=== PATIENT | female | born 1970 | race Caucasian/White ===

== ENCOUNTER 2024-02-09 11:28 | Day surgery (SDC) | payer MEDICAID ==
[~2024-02-09] VITALS: Ht 170.2 cm; Wt 144.0 kg
[~2024-02-09 11:28] MED LIST: OMEP-271 PO; TRAM50TA2 PO
[2024-02-09 12:00] VITALS: BP 155/100; PULSE 86; RESP 16
[2024-02-09] MEDS ORDERED: BUDE10.2 INH (12:14)
[2024-02-09] MEDS ORDERED: METH-797 PO (12:15)
[2024-02-09] MEDS ORDERED: RABE20TA31 PO (12:16)
[2024-02-09] MEDS ORDERED: fentaNYL/PF 50MCG/1 ML 2ML syringe ONE (12:37)
[2024-02-09] MEDS ORDERED: diphenhydrAMINE 50 mg/ml inj ONE (12:37)
[2024-02-09] MEDS ORDERED: MIDAZolam 1 MG/ML 5ML VIAL ONE (12:37)
[2024-02-09] MEDS ORDERED: LIDOcaine 2% Viscous 15ml cup ONE (12:38)
[2024-02-09 13:34] VITALS: BP 131/76; PULSE 63; RESP 19; O2SAT 100
[2024-02-09 13:40] VITALS: BP 121/81; PULSE 68; RESP 13; O2SAT 99
[2024-02-09 13:50] VITALS: BP 103/69; PULSE 62; RESP 13; O2SAT 99
[2024-02-09 14:00] VITALS: BP 117/70; PULSE 19; RESP 19; O2SAT 96
[2024-02-09 14:05] VITALS: BP 117/71; PULSE 60; RESP 15; O2SAT 99
== END 2024-02-09 14:15 | disposition home or self-care (01) ==
LOC: GI LAB 11:28
PROVIDERS: ATTEND Internal Medicine Gastroenterology
DX: Z12.11 Encounter for screening for malignant neoplasm of colon (principal); R13.10 Dysphagia, unspecified; K57.30 Diverticulosis of large intestine without perforation or abscess without bleeding; K29.70 Gastritis, unspecified, without bleeding
CPT/HCPCS: 43239; 45378; 99152; J1200; J2250; J3010; J7030; Z7512; 99153; A4620

== ENCOUNTER 2025-03-29 23:21 | Emergency (ER) | payer MEDICAID ==
[~2025-03-29] VITALS: Ht 170.2 cm; Wt 143.6 kg
[~2025-03-29 23:21] MED LIST changes: +BUDE10.2 INH; +METH-797 PO; -OMEP-271 PO; +RABE20TA32 PO; -TRAM50TA2 PO
[2025-03-30 00:41] LABS: LEUKOCYTE ESTERASE ,URINE NEGATIVE (Neg); NITRITES, URINE NEGATIVE (Neg); OCCULT BLOOD,URINE NEGATIVE (Neg)
[2025-03-30 00:42] LABS: URINE HCG NEGATIVE (NEG)
[2025-03-30 00:50] LABS: UA COLLECTION TYPE CLN CATCH MIDSTREAM
--- NOTE | 2025-03-30 01:36 | RADIOLOGY REPORT ---
Exam: CT CT ABDOMEN PELVIS History: ABD PAIN Comparison Study: None Technique: Multidetector spiral CT of the abdomen was performed from lung bases to pubic symphysis. I maging was performed without IV contrast. Axial, coronal and sagittal multiplanar reformats were obta ined from the axial data set by the technologist. Radiation Dose : 1. Abdomen/Pelvis: CTDIvol 36.88 mGy, DLP 1944.62 mGy*cm. Findings: Evaluation of solid organs is limited due to lack of intravenous contrast use. Lung Bases: No acute or significant lung base finding. Normal heart size. No pleural or pericardial effusion. Liver: The liver is normal in size. No focal lesions. Gallbladder and Biliary Tree: Unremarkable Spleen: Unremarkable Pancreas: The pancreas is grossly normal in appearance. Adrenal Glands: Unremarkable Kidneys: Kidneys are grossly normal without calculi or hydronephrosis. Bladder: Grossly unremarkable for degree of distention. Bowel: The stomach is grossly normal in appearance. Small bowel and colon are normal in caliber and d istribution. The appendix is not visualized; however, no secondary findings of acute appendicitis barb ntified. Ascites: Absent Lymphadenopathy: No mesenteric, retroperitoneal or periportal lymphadenopathy. Abdominal Wall and Mesentery: Unremarkable. Vasculature: The visualized abdominal aorta is normal in size and caliber. Atherosclerotic vascular c alcifications. Evaluation of abdominal and pelvic vessels is limited due to lack of intravenous cont rast. Pelvic Organs: Unremarkable, status post hysterectomy. Musculoskeletal: No aggressive focal bony lesions, acute fractures or dislocation. IMPRESSION: 1. No acute abdominal or pelvic findings. Radiation optimization: All CT scans at this facility use at least one of these dose optimization jolene hniques: automated exposure control mA and/or kV adjustment per patient size (includes targeted exam s where dose is matched to clinical indication) or iterative reconstruction.
--- NOTE | 2025-03-30 02:21 | Physician Documentation ---
History of Present Illness Chief Complaint: Flank Pain Stated Complaint: KIDNEY PAIN Time Seen by MD: 02:18 OK to notify your PCP?: Yes Primary Medical Doctor: SYLVIA THAKKAR Source: patient, RN/MD, RN notes reviewed, old records Mode of Arrival: POV, Ambulatory Exam Limitations: no limitations HPI 54 year old female seen in bed 11 presents to the emergency department for complaints of left sided flank pain that has been present for one week. She states that five days ago she had seen her primary physician and was prescribed an antibiotic as well as an ultrasound but presented today because her pain is so severe. She states that it is non radiating and it worsens with movement. She states that she is currently taking gabapentin and meloxicam. Medication Reconciliation Allergies: Coded Allergies: Latex, Natural Rubber (Verified Allergy, Unknown, 03/29/25) clindamycin (Verified Allergy, Unknown, 03/29/25) codeine (Verified Allergy, Unknown, 03/29/25) Uncoded Allergies: PENICILLIN (Allergy, Unknown, 03/29/25) Scheduled Budesonide/Formoterol Fumarate (Symbicort 160-4.5 Mcg Inhaler), 2 PUFFS INH Q12H, (Reported) Methocarbamol (Methocarbamol), 1 TAB PO Q8H, (Reported) Rabeprazole Sodium (Rabeprazole Sodium), 1 TAB PO DAILY, (Reported) Scheduled PRN Tramadol HCl (Tramadol HCl), 1 TAB PO Q12H PRN PRN for pain Past Medical History Past Medical History: Chronic Back Pain Past Surgical History: other Alcohol Use: None Review of Systems All Other Systems at this time: Reviewed and Negative ROS As stated above in the HPI, otherwise all systems are reviewed and negative. Physical Exam Vital Signs: RN Vital Signs have been reviewed: Yes, Temperature: 97.1, Source: Temporal, Heart Rate: 73, Respiratory Rate: 16, BP: 161/82, Pulse Oximetry: 98, Weight: 143.550 Oxygen Flow Rate: 0 Pulse Oximetry Reflects: adequate oxygenation Physical Exam General: The patient is well developed, well nourished, nontoxic appearing and is in no acute distress. Skin: [place], warm and dry with no rashes. HEENT: Head was normocephalic and atraumatic. Eyes - pupils equal, round, reactive to light and accommodation. Extraocular movements were intact. Conjunctivae were nonicteric. Ears - bilateral tympanic membranes were normal. The mouth and oropharynx were clear with moist mucous membranes. There were no pharyngeal exudates or erythema. Neck: Supple and nontender. There was no jugular venous distention, lymphadenopathy, thyromegaly or masses. Chest: Clear to auscultation bilaterally without wheezes, rales or rhonchi. No accessory muscle use. No dullness to percussion. Heart: Rate regular and rhythmic. S1, S2. No murmurs. Palpation of the chest wall was normal. No rubs or thrills. Abdomen: L2 pain and tenderness in the left paraspinal area. Soft, nontender and nondistended. Positive bowel sounds. No guarding or rebound. No hepatosplenomegaly or palpable masses. Extremities: No cyanosis, clubbing or edema. The patient moves all extremities. Pulses were equal and symmetric. Neurologic: Cranial nerves II-XII were intact. Sensation was intact to light touch throughout. Motor strength was 5/5 in all four extremities. Deep tendon reflexes were intact in both upper and lower extremities. Psychologic: The patient was oriented to person, place and time. The patient demonstrated appropriate judgement and insight. Progress Results/Orders Reviewed/noted all lab results: Yes Results/Orders Orders - KRIS RODRIGUEZ MD Straight Cath For Urine Sample (03/29/25 23:53) Ct Abdomen Pelvis (03/30/25 00:31) Completed Orders - KRIS RODRIGUEZ MD Urinalysis, Cult If Indicated (03/29/25 23:53) Hcg, Ur Ql (03/29/25 23:53) Ct Abdomen Pelvis (03/30/25 00:31) Vital Signs 03/29/25 03/30/25 03/30/25 23:49 00:47 00:47 Temp 97.1 Pulse 82 73 Resp 16 16 16 B/P (MAP) 166/98 161/82 (108) Pulse Ox 99 98 O2 Flow Rate 0 0 Laboratory Tests Test 03/30/25 00:31 Urine Specimen Description Cln catch midstream Urine Color Yellow Urine Clarity Clear Urine pH 6.0 Urine Specific [place] 1.025 Urine Protein Negative Urine Glucose (UA) Negative Urine Ketones Negative Urine Occult Blood Negative Urine Nitrite Negative Urine Bilirubin Negative Urine Urobilinogen 0.2 Urine Leukocyte Esterase Negative Urine Culture Indicated Not ind Volume Urine Centrifuged 10 ml Urine HCG, Qualitative Negative Urine Comment Re-Evaluation Re-Evaluation : Re-Evaluation: Improved Progress Patient was seen and examined. Patient is given reassurance. Patient's urinalysis did not show any hematuria. Patient was sent over by the primary care physician for possible kidney stones and UTI so a CAT scan was ordered immediately. However cat scan was negative for any stones and urinalysis came back without hematuria or any signs of infection. Urinary tract infection. On exam patient seemed to have more musculoskeletal pain rather than flank CVA tenderness. Patient then received naproxen Ultram and later Decadron for anti- inflammatory reasons. Patient received reassurance and was discharged home enco uraged stretching exercises. Patient received a prescription for the same and was discharged home. EKG/XRAY/CT/US/VASC/MRI CT : Impression Exam: CT CT ABDOMEN PELVIS History: ABD PAIN Comparison Study: None Technique: Multidetector spiral CT of the abdomen was performed from lung bases to pubic symphysis. Imaging was performed without IV contrast. Axial, coronal and sagittal multiplanar reformats were obtained from the axial data set by the technologist. Radiation Dose : 1. Abdomen/Pelvis: CTDIvol 36.88 mGy, DLP 1944.62 mGy*cm. Findings: Evaluation of solid organs is limited due to lack of intravenous contrast use. Lung Bases: No acute or significant lung base finding. Normal heart size. No pleural or pericardial effusion. Liver: The liver is normal in size. No focal lesions. Gallbladder and Biliary Tree: Unremarkable Spleen: Unremarkable Pancreas: The pancreas is grossly normal in appearance. Adrenal Glands: Unremarkable Kidneys: Kidneys are grossly normal without calculi or hydronephrosis. Bladder: Grossly unremarkable for degree of distention. Bowel: The stomach is grossly normal in appearance. Small bowel and colon are normal in caliber and distribution. The appendix is not visualized; however, no secondary findings of acute appendicitis identified. Ascites: Absent Lymphadenopathy: No mesenteric, retroperitoneal or periportal lymphadenopathy. Abdominal Wall and Mesentery: Unremarkable. Vasculature: The visualized abdominal aorta is normal in size and caliber. Atherosclerotic vascular calcifications. Evaluation of abdominal and pelvic vessels is limited due to lack of intravenous contrast. Pelvic Organs: Unremarkable, status post hysterectomy. Musculoskeletal: No aggressive focal bony lesions, acute fractures or dislocation. IMPRESSION: 1. No acute abdominal or pelvic findings. Radiation optimization: All CT scans at this facility use at least one of these dose optimization techniques: automated exposure control mA and/or kV adjus tment per patient size (includes targeted exams where dose is matched to clinical indication) or iterative reconstruction. Electronically Signed by:JEREMY SMITH MD Date & Time: 03/30/25 0133 Medical Decision Making Additional info obtained from: old records Differential Dx:Considerations: Include: Pancreatitis, PID, Urinary obstruction, Urinary tract infection, Urolithiasis, Other Departure Time of Disposition: 02:35 Disposition: 01 HOME / SELF CARE / HOMELESS Impression: Primary Impression: Low back pain Qualified Codes: M54.50 - Low back pain, unspecified Additional Impression: Musculoskeletal back pain Condition: Stable Discharge Instructions: Chronic Back Pain Referrals: NO PRIMARY CARE PROVIDER (PCP) Prescriptions Tramadol HCl (Tramadol HCl) 50 Mg Tablet 1 TAB PO Q12H PRN PRN for pain for 7 Days, #14 TAB Prov: KRIS RODRIGUEZ MD 03/30/25 Education Educated: Patient, Family Educated regarding: diagnosis, treatment, prognosis, need for follow up Signature Scribe Signature: Scribed for Kris Rodriguez MD by Duncan Camacho . 03/30/25 02:36 Attestation: The note accurately reflects work and decisions made by me.Kris Rodriguez MD 03/30/25 02:21 KRIS RODRIGUEZ MD Mar 30, 2025 02:21 DUNCAN DE LOS SANTOS Mar 30, 2025 02:36
[2025-03-30 02:30] VITALS: BP 160/93; PULSE 72; O2SAT 97
[2025-03-30] MEDS ORDERED: TRAM50TA2 PO (02:31)
[2025-03-30 02:41] VITALS: RESP 16
[2025-03-30 02:45] VITALS: TEMP 97.1
== END 2025-03-30 02:48 | disposition home or self-care (01) ==
LOC: ER 23:22
DX: M54.50 Low back pain, unspecified (principal); Z88.1 Allergy status to other antibiotic agents; Z88.5 Allergy status to narcotic agent; Z91.040 Latex allergy status; Z79.899 Other long term (current) drug therapy
CPT/HCPCS: 74176; 81003; 81025; 99284